=== PATIENT | female | born 1995 | race Caucasian/White ===

== ENCOUNTER 2017-02-25 10:51 | Emergency (ER) | payer SELFPAY ==
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
[2017-02-25 11:44] VITALS: BP 118/68
== END 2017-02-25 11:42 | disposition home or self-care (01) ==
LOC: ED 10:51
DX: S13.4XXA Sprain of ligaments of cervical spine, initial encounter (principal); V89.2XXA Person injured in unspecified motor-vehicle accident, traffic, initial encounter; Y93.9 Activity, unspecified; Y92.9 Unspecified place or not applicable; Y99.9 Unspecified external cause status
CPT/HCPCS: 99283